=== PATIENT | male | born 1990 | race Caucasian/White ===

== ENCOUNTER 2019-01-01 04:50 | Emergency (ER) | payer OTHER ==
[2019-01-01] MEDS ORDERED: MAG HYDROX/AL HYDROX/SIMETH 30 ML UDC PO STA (05:03)
[2019-01-01] MEDS ORDERED: METOCLOPRAMIDE 10 MG/2 ML VIAL IVP STA (05:03)
[2019-01-01] MEDS ORDERED: FAMOTIDINE 20 MG in SODIUM CHLORIDE 0.9% 50 ML IV STA (05:03)
[2019-01-01] MEDS ORDERED: KETOROLAC 15 MG/ML VIAL IVP STA (05:23)
--- NOTE | 2019-01-01 05:43 | CT Report ---
Reason: flank pain, abdominal pain Procedure Date: 01/01/2019 Accession Number: [id number] / [id number] Procedure: CT - Abdomen/Pelvis WO CPT Code: FULL RESULT: EXAM: CT ABDOMEN AND PELVIS (CT KUB) EXAM DATE: 01/01/2019 05:36 AM. CLINICAL HISTORY: Flank pain, abdominal pain. COMPARISONS: None. TECHNIQUE: Routine axial helical CT imaging was performed through the abdomen and pelvis without IV contrast. Reconstructions: Coronal and sagittal. In accordance with CT protocol optimization, one or more of the following dose reduction techniques were utilized for this exam: automated exposure control, adjustment of mA and/or KV based on patient size, or use of iterative reconstructive technique. FINDINGS: Lung Bases: Unremarkable. Right Kidney/Ureter: No stones, hydronephrosis, or hydroureter. No perinephric fat stranding. Left Kidney/Ureter: No stones, hydronephrosis, or hydroureter. No perinephric fat stranding. Other Solid Organs: Noncontrast images of the solid organs are grossly unremarkable. Gallbladder/Bile Ducts: Unremarkable. Peritoneal Cavity: No free fluid, free air or donny adenopathy. Bowel is grossly unremarkable. Normal appendix. Pelvic Organs: No bladder stones or wall thickening. Noncontrast images of the visualized pelvic organs are unremarkable. Vasculature: Unremarkable. Other: None. IMPRESSION: No urinary tract stones or obstruction. Normal appendix. No evident etiology for patient's pain. RADIA
--- NOTE | 2019-01-01 05:48 | ED Physician Documentation ---
PD HPI ABD PAIN - Stated complaint Stated Complaint: BACK/ABD PAIN - Chief complaint Chief Complaint: Abd Pain - Additional information Additional information: 28-year-old male presents the emergency department with sudden onset of left flank pain which started this morning and has subsided but now the patient has ongoing epigastric discomfort. The patient's epigastric discomfort is only mild at this point. The flank pain was severe. The patient denies lower abdominal pain or testicular pain. The patient denies vomiting or diarrhea or fever. No triggering factors. Symptoms improved on their own. No other associated symptoms Review of Systems Constitutional: denies: Fever Eyes: denies: Discharge Ears: denies: Ear pain Nose: denies: Congestion Throat: denies: Sore throat Respiratory: denies: Cough GI: reports: Abdominal Pain. denies: Vomiting, Diarrhea : denies: Dysuria, Hematuria Musculoskeletal: denies: Neck pain Neurologic: denies: Generalized weakness PD PAST MEDICAL HISTORY - Past Medical History Past Medical History: No Cardiovascular: None Respiratory: None Neuro: None Endocrine/Autoimmune: None GI: None : None HEENT: None Psych: None Musculoskeletal: None Derm: None - Past Surgical History Past Surgical History: No - Allergies Allergies/Adverse Reactions: Allergies Allergy/AdvReac Type Severity Reaction Status Date / Time No Known Drug Allergies Allergy Verified 01/01/19 05:02 - Social History Does the pt smoke?: No Smoking Status: Never smoker Does the pt drink ETOH?: Yes Does the pt have substance abuse?: No - Immunizations Immunizations are current?: Yes - POLST Patient has POLST: No PD ED PE NORMAL - General General: Alert and oriented X 3, No acute distress - HEENT HEENT: Atraumatic, PERRL, EOMI, Ears normal, Moist mucous membranes, Pharynx benign - Neck Neck: Supple, no meningeal sign - Cardiac Cardiac: RRR, Strong equal pulses - Respiratory Respiratory: No respiratory distress, Clear bilaterally - Abdomen Abdomen: Soft, Non distended. No: Non tender (Epigastric discomfort, the patient still is sore in the left flank. No skin changes) - Derm Derm: Normal color - Extremities Extremities: No deformity - Neuro Neuro: Alert and oriented X 3, Normal speech - Psych Psych: Normal affect Results - Vitals Vitals: Vital Signs - 24 hr 01/01/19 01/01/19 04:59 05:38 Temperature 36.5 C Heart Rate 74 84 Respiratory 17 16 Rate Blood Pressure 135/75 H 133/74 H O2 Saturation 96 95 Oxygen O2 Source Room air - EKG (time done) 05:15 Rate: Rate (enter#) Rhythm: Sinus bradycardia Intervals: Normal [place], QRS normal Ischemia: Normal ST segments - Labs Labs: Laboratory Tests 01/01/19 01/01/19 01/01/19 05:10 05:10 05:10 WBC 8.3 RBC 4.84 Hgb 15.6 Hct 46.1 MCV 95.1 H MCH 32.1 H MCHC 33.8 RDW 12.9 Plt Count 205 MPV 10.2 Neut # (Auto) 5.7 Lymph # (Auto) 1.6 [place] # (Auto) 0.6 Eos # (Auto) 0.3 Baso # (Auto) 0.1 Absolute Nucleated RBC 0.00 Nucleated RBC % 0.0 Sodium 141 Potassium 3.7 Chloride 106 Carbon Dioxide 25 Anion Gap 10.0 BUN 16 Creatinine 1.0 Estimated GFR (MDRD) 89 Glucose 113 H Calcium 9.5 Total Bilirubin 0.8 AST 21 ALT 36 Alkaline Phosphatase 81 Troponin I < 0.04 Total Protein 7.6 Albumin 4.8 Globulin 2.8 Albumin/Globulin Ratio 1.7 Lipase 32 - Rads (name of study) CT abd/pelvis Radiology: Final report received, See rad report (No urinary tract stones or obstruction. Normal appendix. No evident Etiology for patient's pain) PD MEDICAL DECISION MAKING - ED course ED course: On reevaluation the patient is resting comfortably and appears to be in no acute distress and denies any acute pain. The patient's workup does not reveal any significant abnormality that would require admission to the hospital or acute surgical consultation. I discussed the findings and plan with the patient who understands and agrees to the plan. I recommended close follow-up with primary care because of his symptoms are not improving he may need referral to GI. I discussed warning signs for a more serious intra-abdominal process advised return to the emergency department immediately for any worsening or any concerns. Departure - Departure Disposition: 01 Home, Self Care Clinical Impression: Epigastric abdominal pain, Flank pain, acute Condition: Good Instructions: Abdominal Pain, ED Abdominal Pain Unkn Cause, ED Flank Pain Uncertain Cause Follow-Up: GLENDY Vazquez [Provider Group] - Within 3 Days Comments: Please return to the emergency department for worsening symptoms or any concerns
[2019-01-01 06:00] LABS: BASOPHILS # (AUTO) 0.1 10^3/uL (0.0-0.1); BASOPHILS % (AUTO) 0.6 %; EOSINOPHILS # (AUTO) 0.3 10^3/uL (0.0-0.7); EOSINOPHILS % (AUTO) 3.6 %; HGB - HEMOGLOBIN 15.6 g/dL (14.0-18.0); LYMPHOCYTES # (AUTO) 1.6 10^3/uL (1.5-3.5); LYMPHOCYTES % (AUTO) 19.8 %; MEAN CORPUSCULAR HEMOGLOBIN 32.1 pg (27.0-31.0); MEAN CORPUSCULAR HGB CONC 33.8 g/dL (32.0-36.0); MEAN CORPUSCULAR VOLUME 95.1 fL (80.0-94.0); MEAN PLATELET VOLUME 10.2 fL (7.4-11.4); MONOCYTES # (AUTO) 0.6 10^3/uL (0.0-1.0); MONOCYTES % (AUTO) 7.5 %; NEUTROPHILS # (AUTO) 5.7 10^3/uL (1.5-6.6); NEUTROPHILS % (AUTO) 68.5 %; PLT - PLATELET COUNT 205 10^3/uL (130-450); RED BLOOD COUNT 4.84 10^6/uL (4.70-6.10); RED CELL DISTRIBUTION WIDTH 12.9 % (12.0-15.0); WHITE BLOOD COUNT 8.3 x10^3/uL (4.8-10.8)
[2019-01-01 06:05] LABS: ALBUMIN 4.8 g/dL (3.2-5.5); ALBUMIN/GLOBULIN RATIO 1.7 (1.0-2.2); BILIRUBIN,TOTAL 0.8 mg/dL (0.2-1.0); CALCIUM 9.5 mg/dL (8.5-10.3); TOTAL PROTEIN 7.6 g/dL (6.7-8.2)
[2019-01-01 06:28] VITALS: BP 112/63
== END 2019-01-01 06:35 | disposition home or self-care (01) ==
LOC: ED 04:50
DX: R10.13 Epigastric pain (principal)
CPT/HCPCS: 36415; 74176; 80053; 83690; 84484; 85025; 93005; 96365; 96375; 99283; A9270; J2765; J7040

== ENCOUNTER 2019-09-29 15:48 | Emergency (ER) | payer OTHER ==
[2019-09-29] MEDS ORDERED: LACTATED RINGERS 1,000 ML IV STA (16:06)
[2019-09-29] MEDS ORDERED: SODIUM CHLORIDE 0.9% 1,000 ML IV ONE (16:06)
[2019-09-29] MEDS ORDERED: ONDANSETRON 4 MG/2 ML VIAL IVP STA (16:06)
[2019-09-29] MEDS ORDERED: LOPERAMIDE 2 MG CAPSULE PO STA (16:06)
--- NOTE | 2019-09-29 16:07 | ED Physician Documentation ---
PD HPI NVD - Stated complaint Stated Complaint: N/V/D - History obtained from History obtained from: Patient (Previously healthy 28-year-old gentleman has been sick since early this morning with vomiting and diarrhea. No abdominal pain except when he is vomiting. Both his and young child were sick with a similar syndrome yesterday. No recent travel.) Review of Systems Constitutional: denies: Fever, Chills Cardiac: denies: Chest pain / pressure, Palpitations Respiratory: denies: Dyspnea, Cough PD PAST MEDICAL HISTORY - Past Medical History Cardiovascular: None Respiratory: None Neuro: None Endocrine/Autoimmune: None GI: None : None HEENT: None Psych: None Musculoskeletal: None Derm: None - Past Surgical History Past Surgical History: No - Present Medications Home Medications: Ambulatory Orders Medication Instructions Recorded Confirmed Loperamide [Imodium] 2 mg PO QID PRN #10 capsule 09/29/19 Ondansetron Odt [Zofran] 4 mg TL Q6H PRN #10 tablet 09/29/19 - Allergies Allergies/Adverse Reactions: Allergies Allergy/AdvReac Type Severity Reaction Status Date / Time No Known Drug Allergies Allergy Verified 01/01/19 05:02 - Social History Does the pt smoke?: No Smoking Status: Never smoker Does the pt drink ETOH?: Yes Does the pt have substance abuse?: No - Immunizations Immunizations are current?: Yes - POLST Patient has POLST: No PD ED PE NORMAL - Vitals Vital signs reviewed: Yes - General General: Alert and oriented X 3, No acute distress - HEENT HEENT: Other (dry MM) - Cardiac Cardiac: RRR, No murmur - Respiratory Respiratory: No respiratory distress, Clear bilaterally - Abdomen Abdomen: Soft, Non tender - Neuro Neuro: Alert and oriented X 3, Normal speech Results - Vitals Vitals: Vital Signs - 24 hr 09/29/19 16:02 Temperature 36.5 C Heart Rate 103 H Respiratory 16 Rate Blood Pressure 126/82 H O2 Saturation 97 Oxygen O2 Source Room air PD MEDICAL DECISION MAKING - ED course ED course: 28-year-old gentleman with typical gastroenteritis and family contacts with same. Nontender belly. He was administered 2 L of IV fluid, Zofran and Imodium with significant improvement in his symptoms and passed an oral challenge. Departure - Departure Disposition: 01 Home, Self Care Clinical Impression: Gastroenteritis Condition: Good Instructions: ED Gastroenteritis Viral Prescriptions: Loperamide [Imodium] 2 mg PO QID PRN #10 capsule PRN Reason: Diarrhea Ondansetron Odt [Zofran] 4 mg TL Q6H PRN #10 tablet PRN Reason: Nausea / Vomiting Comments: As discussed you should be significantly better within 12 to 24 hours. Return in 12 hours if not improving, anytime if worse. Forms: Activity restrictions
[2019-09-29 18:35] VITALS: BP 111/62
== END 2019-09-29 18:47 | disposition home or self-care (01) ==
LOC: ED 15:48
DX: K52.9 Noninfective gastroenteritis and colitis, unspecified (principal)
CPT/HCPCS: 96361; 96374; 99283; A9270; J7120

== ENCOUNTER 2019-12-12 14:39 | Emergency (ER) | payer OTHER ==
--- NOTE | 2019-12-12 15:24 | XRAY Report ---
Reason: R/O Fx Procedure Date: 12/12/2019 Accession Number: [id number] / [id number] Procedure: XR - Ankle 3 View LT CPT Code: Final Report FULL RESULT: EXAM: LEFT ANKLE RADIOGRAPHY EXAM DATE: 12/12/2019 02:54 PM. CLINICAL HISTORY: R/O Fx. COMPARISON: FOOT 3 VIEW LT 12/12/2019 2:59 PM. TECHNIQUE: 3 views. FINDINGS: Bones: No fracture. Os trigonum. Small ossicle adjacent to the anterior process of the calcaneus, possible calcaneus secondarius Joints: Normal. No effusion. No subluxations. The ankle mortise is normally aligned. Soft Tissues: Normal. No soft tissue swelling. IMPRESSION: No fracture or dislocation. RADIA
--- NOTE | 2019-12-12 15:25 | XRAY Report ---
Reason: R/O Fx Procedure Date: 12/12/2019 Accession Number: [id number] / [id number] Procedure: XR - Foot 3 View LT CPT Code: Final Report FULL RESULT: EXAM: LEFT FOOT RADIOGRAPHY EXAM DATE: 12/12/2019 03:09 PM. CLINICAL HISTORY: R/O Fx. COMPARISON: None. TECHNIQUE: 3 views. FINDINGS: Bones: Tiny linear ossific density seen lateral to the cuboid, just distal to the calcaneal cuboid joint, on the oblique radiograph only. Tiny plantar spur. Os trigonum. Well-corticated ossicle adjacent to the anterior calcaneal process, possible calcaneus secondarius. Osteophytosis along the superior margin of the tarsal metatarsal joint. Joints: Normal. No subluxations. Soft Tissues: Normal. No soft tissue swelling. IMPRESSION: Tiny linear ossific density seen adjacent to the cuboid, could be sequela of age-indeterminate avulsion RADIA
--- NOTE | 2019-12-12 17:08 | ED Physician Documentation ---
PD HPI LOWER EXT INJURY - Stated complaint Stated Complaint: LEFT FOOT INJ - Chief complaint Chief Complaint: Ext Problem - History obtained from History obtained from: Patient - History of Present Illness PD HPI LOW EXT INJURY LOCATION: Left Type of injury: Fall, Twist Where injury occurred: Work Timing - onset: Enter time (1400), Today Timing - duration: Hours Timing - details: Abrupt onset, Still present Improved by: Rest, Immobilization Worsened by: Moving, Palpating Associated symptoms: Swelling. No: Weakness, Numbness Contributing factors: No: Anticoagulated, Prior ortho surgery Similar symptoms before: Has not had sx before Recently seen: Not recently seen - Additional information Additional information: 28-year-old male was walking down some steps with a tote in his hand he missed the last step twisted his foot he is not exactly sure how that happened he has a lot of pain to the top of the foot. He has some swelling there as well. He has not tried to bear weight. Review of Systems Constitutional: denies: Fever Eyes: denies: Decreased vision Ears: denies: Ear pain Nose: denies: Congestion Throat: denies: Sore throat Respiratory: denies: Dyspnea, Cough GI: denies: Vomiting : denies: Dysuria PD PAST MEDICAL HISTORY - Past Medical History Cardiovascular: None Respiratory: None Neuro: None Endocrine/Autoimmune: None GI: None : None HEENT: None Psych: None Musculoskeletal: None Derm: None - Past Surgical History Past Surgical History: No - Present Medications Home Medications: Ambulatory Orders Medication Instructions Recorded Confirmed Loperamide [Imodium] 2 mg PO QID PRN #10 capsule 09/29/19 Ondansetron Odt [Zofran] 4 mg TL Q6H PRN #10 tablet 09/29/19 - Allergies Allergies/Adverse Reactions: Allergies Allergy/AdvReac Type Severity Reaction Status Date / Time No Known Drug Allergies Allergy Verified 12/12/19 14:50 - Social History Does the pt smoke?: No Smoking Status: Never smoker Does the pt drink ETOH?: Yes Does the pt have substance abuse?: No - Immunizations Immunizations are current?: Yes - POLST Patient has POLST: No PD ED PE NORMAL - Vitals Vital signs reviewed: Yes (hypertensive ) - General General: Alert and oriented X 3, No acute distress, Well developed/nourished - HEENT HEENT: Atraumatic, PERRL, EOMI - Respiratory Respiratory: No respiratory distress - Derm Derm: Normal color, Warm and dry, No rash - Extremities Extremities: No deformity, Other (There is swelling and point tenderness over the dorsum of the foot over the cuboid. There is no tenderness to the proximal 5th and no tenderness to the malleoli.) - Neuro Neuro: Alert and oriented X 3, radar air traffic controller 2-12 intact, No motor deficit, No sensory deficit, Normal speech Eye Opening: Spontaneous Motor: Obeys Commands Verbal: Oriented GCS Score: 15 - Psych Psych: Normal mood, Normal affect Results - Vitals Vitals: Vital Signs - 24 hr 12/12/19 14:50 Temperature 36.5 C Heart Rate 79 Respiratory 16 Rate Blood Pressure 135/75 H O2 Saturation 99 Oxygen O2 Source Room air - Rads (name of study) foot Radiology: Prelim report reviewed (Impression: Tiny linear ossific density seen adjacent to the cuboid, could be sequela of age indeterminate avulsion), EMP read indepedently, See rad report Ankle Radiology: Prelim report reviewed, EMP read indepedently, See rad report PD MEDICAL DECISION MAKING - ED course Complexity details: reviewed results, re-evaluated patient, considered differential, d/w patient ED course: 28-year-old male with pain is going to the dorsum of foot has a chip fracture to the cuboid and he is specifically tender to that area. He is placed into a walking boot. Departure - Departure Disposition: 01 Home, Self Care Clinical Impression: Foot fracture, left Qualifiers: Encounter type: initial encounter Fracture type: closed Qualified Code(s): S92.902A - Unspecified fracture of left foot, initial encounter for closed fr acture Condition: Stable Instructions: ED Fx Foot Follow-Up: GLENDY Vasquezkvng Vazquez [Provider Group]
[2019-12-12 17:43] VITALS: BP 120/77
== END 2019-12-12 17:46 | disposition home or self-care (01) ==
LOC: ED 14:39
DX: S92.212A Displaced fracture of cuboid bone of left foot, initial encounter for closed fracture (principal); W10.9XXA Fall (on) (from) unspecified stairs and steps, initial encounter; X50.1XXA Overexertion from prolonged static or awkward postures, initial encounter; Y93.01 Activity, walking, marching and hiking; Y99.0 Civilian activity done for income or pay
CPT/HCPCS: 99283; 99284

== ENCOUNTER 2019-12-30 15:02 | Emergency (ER) | payer OTHER ==
[2019-12-30 15:14] VITALS: BP 120/72
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
== END 2019-12-30 16:41 | disposition home or self-care (01) ==
LOC: ED 15:02
DX: M54.9 Dorsalgia, unspecified (principal); R51 Headache; V53.5XXA Driver of pick-up truck or van injured in collision with car, pick-up truck or van in traffic accident, initial encounter; Y92.410 Unspecified street and highway as the place of occurrence of the external cause
CPT/HCPCS: 99281; 99282

== ENCOUNTER 2020-09-08 13:47 | Observation (INO) | payer OTHER ==
[2020-09-08 15:50] LABS: BASOPHILS # (AUTO) 0.1 10^3/uL (0.0-0.1); BASOPHILS % (AUTO) 0.4 %; EOSINOPHILS # (AUTO) 0.2 10^3/uL (0.0-0.7); EOSINOPHILS % (AUTO) 1.8 %; HGB - HEMOGLOBIN 15.6 g/dL (14.0-18.0); LYMPHOCYTES # (AUTO) 1.8 10^3/uL (1.5-3.5); MEAN CORPUSCULAR HEMOGLOBIN 31.9 pg (27.0-31.0); MEAN CORPUSCULAR HGB CONC 33.5 g/dL (32.0-36.0); MEAN CORPUSCULAR VOLUME 95.3 fL (80.0-94.0); MEAN PLATELET VOLUME 11.3 fL (7.4-11.4); MONOCYTES # (AUTO) 0.7 10^3/uL (0.0-1.0); MONOCYTES % (AUTO) 6.2 %; NEUTROPHILS # (AUTO) 8.5 10^3/uL (1.5-6.6); NEUTROPHILS % (AUTO) 75.2 %; PLT - PLATELET COUNT 240 10^3/uL (130-450); RED BLOOD COUNT 4.89 10^6/uL (4.70-6.10); RED CELL DISTRIBUTION WIDTH 12.4 % (12.0-15.0); WHITE BLOOD COUNT 11.3 x10^3/uL (4.8-10.8)
[2020-09-08 16:00] LABS: BILIRUBIN,URINE NEGATIVE (NEGATIVE); GLUCOSE, URINE (UA) NEGATIVE (NEGATIVE); KETONES,URINE (UA) 15 mg/dL (NEGATIVE); LEUKOCYTE ESTERASE, URINE NEGATIVE (NEGATIVE); NITRITE,URINE NEGATIVE (NEGATIVE); OCCULT BLOOD,URINE NEGATIVE (NEGATIVE); PH,URINE 6.5 PH (5.0-7.5); PROTEIN,URINE NEGATIVE (NEGATIVE); UROBILINOGEN,URINE 1 (NORMAL) E.U./dL (NORMAL)
[2020-09-08 16:01] LABS: CLARITY,URINE CLEAR (CLEAR)
[2020-09-08 16:03] LABS: ALBUMIN 5.3 g/dL (3.2-5.5); ALBUMIN/GLOBULIN RATIO 1.8 (1.0-2.2); TOTAL PROTEIN 8.3 g/dL (6.7-8.2)
--- NOTE | 2020-09-08 17:45 | ED Physician Documentation ---
PD HPI ABD PAIN - Stated complaint Stated Complaint: ABD/BACK PX - Chief complaint Chief Complaint: Abd Pain - History obtained from History obtained from: Patient - History of Present Illness Timing - onset: How many weeks ago (1) Timing - duration: Weeks (1) Timing - details: Gradual onset Pain level max: 8 Pain level now: 6 Quality: Aching, Pain Location: RUQ Radiation: Right flank Improved by: Other (Nothing) Worsened by: Eating Associated symptoms: Nausea. No: Fever, Vomiting, Hematemesis, Diarrhea, Constipation, Melena, Hematochezia, Dysuria, Hematuria Similar symptoms before: Has not had sx before Recently seen: Not recently seen - Additional information Additional information: Intermittent right upper quadrant pain for the past week, worse with eating, normally lasts for 15 to 20 minutes at a time, today has been present for over 7 hours. Review of Systems Ten Systems: 10 systems reviewed and negative Constitutional: denies: Fever, Chills Respiratory: denies: Cough : denies: Dysuria Skin: denies: Rash Musculoskeletal: denies: Neck pain, Back pain Neurologic: denies: Headache PD PAST MEDICAL HISTORY - Past Medical History Cardiovascular: None Respiratory: None Neuro: None Endocrine/Autoimmune: None GI: None : None HEENT: None Psych: None Musculoskeletal: None Derm: None - Past Surgical History Past Surgical History: No - Present Medications Home Medications: Ambulatory Orders Medication Instructions Recorded Confirmed Ibuprofen 400 mg PO BID 12/30/19 12/30/19 - Allergies Allergies/Adverse Reactions: Allergies Allergy/AdvReac Type Severity Reaction Status Date / Time No Known Drug Allergies Allergy Verified 09/08/20 14:00 - Social History Does the pt smoke?: No Smoking Status: Never smoker Does the pt drink ETOH?: Yes Does the pt have substance abuse?: No - Immunizations Immunizations are current?: Yes - POLST Patient has POLST: No PD ED PE NORMAL - Vitals Vital signs reviewed: Yes - General General: Alert and oriented X 3, No acute distress, Well developed/nourished - HEENT HEENT: PERRL, Moist mucous membranes - Neck Neck: Supple, no meningeal sign - Cardiac Cardiac: RRR, Strong equal pulses - Respiratory Respiratory: No respiratory distress, Clear bilaterally - Abdomen Abdomen: Normal bowel sounds, Soft, Non distended, Other (Tender to palpation right upper quadrant. Positive Aguilar sign) - Derm Derm: Warm and dry - Extremities Extremities: No edema - Neuro Neuro: Alert and oriented X 3 - Psych Psych: Normal mood, Normal affect Results - Vitals Vitals: Vital Signs - 24 hr 09/08/20 09/08/20 09/08/20 13:55 14:37 16:00 Temperature 36.9 C 36.9 C 36.8 C Heart Rate 76 76 78 Respiratory 16 16 16 Rate Blood Pressure 128/74 128/74 126/72 O2 Saturation 99 99 100 09/08/20 19:26 Temperature 37.2 C Heart Rate 84 Respiratory 16 Rate Blood Pressure 124/90 H O2 Saturation 99 Oxygen O2 Source Room air - Labs Labs: Laboratory Tests 09/08/20 09/08/20 09/08/20 15:44 15:44 15:50 WBC 11.3 H RBC 4.89 Hgb 15.6 Hct 46.6 MCV 95.3 H MCH 31.9 H MCHC 33.5 RDW 12.4 Plt Count 240 MPV 11.3 Neut # (Auto) 8.5 H Lymph # (Auto) 1.8 [place] # (Auto) 0.7 Eos # (Auto) 0.2 Baso # (Auto) 0.1 Absolute Nucleated RBC 0.00 Nucleated RBC % 0.0 Sodium 138 Potassium 4.2 Chloride 100 L Carbon Dioxide 27 Anion Gap 11.0 BUN 14 Creatinine 1.0 Estimated GFR (MDRD) 88 L Glucose 96 Calcium 10.0 Total Bilirubin 1.0 AST 20 ALT 39 Alkaline Phosphatase 65 Total Protein 8.3 H Albumin 5.3 Globulin 3.0 Albumin/Globulin Ratio 1.8 Lipase 22 Urine Color YELLOW Urine Clarity CLEAR Urine pH 6.5 Ur Specific [place] 1.025 Urine Protein NEGATIVE Urine Glucose (UA) NEGATIVE Urine Ketones 15 H Urine Occult Blood NEGATIVE Urine Nitrite NEGATIVE Urine Bilirubin NEGATIVE Urine Urobilinogen 1 (NORMAL) Ur Leukocyte Esterase NEGATIVE Ur Microscopic Review NOT INDICATED Urine Culture Comments NOT INDICATED - Rads (name of study) RUQ Ultrasound Radiology: Prelim report reviewed, EMP read contemporaneously, See rad report PD MEDICAL DECISION MAKING - ED course Complexity details: reviewed results, re-evaluated patient, considered differential, d/w patient, d/w email production consultant ED course: 29-year-old male presents to the emergency department with right upper quadrant abdominal pain constant for the past several hours. Not relieved with Dilaudid in the emergency department. Right upper quadrant ultrasound shows nonmobile ga llstones at the neck of the gallbladder with gallbladder distention and gallbladder wall thickening. Does have leukocytosis as well. Likely that this represents developing acute cholecystitis. Discussed the case with Dr. Bernal, general surgery, will place on IV antibiotics overnight and possible operating room tomorrow. This document was made in part using voice recognition software. While efforts are made to proofread this document, sound alike and grammatical errors may occur. Nonmobile gallstones are seen at the neck of the gallbladder with mild gallbladder distention. There is possible gallbladder wall thickening. No pericholecystic fluid is seen. Recommend clinical correlation to exclude acute cholecystitis. Departure - Departure Disposition: ED Place in Observation Clinical Impression: Cholecystitis Condition: Stable Discharge Date/Time: 09/08/20 21:05
--- NOTE | 2020-09-08 18:22 | Ultrasound Report ---
PROCEDURE: Abdomen Limited INDICATIONS: RUQ abd pain TECHNIQUE: Real-time scanning was performed of the abdominal and retroperitoneal organs, with image documentatio n. COMPARISON: None. FINDINGS: Liver: Liver is normal in size and homogeneous in echotexture. Gallbladder: Multiple gallstones are seen at the gallbladder neck measuring up to 1.1 cm in maximum d imension. The gallbladder is distended, measuring up to 11.5 x 4.8 x 5.4 cm. There is possible gallbl adder wall thickening that measures up to 7 mm on some images. There is no pericholecystic fluid. Biliary ducts: Intrahepatic bile ducts are non-dilated. Extrahepatic bile duct caliber measures 4 m m. Normal is 6-7 mm or less in diameter, or 10 mm or less post-cholecystectomy. Pancreas: Not well visualized due to overlying bowel gas. Kidneys: Right kidney is normal in size and echotexture. Right kidney measures 10.4 cm long. No hyd ronephrosis or nephrolithiasis. No solid masses. Miscellaneous: No free right upper quadrant fluid. IMPRESSION: Nonmobile gallstones are seen at the neck of the gallbladder with mild gallbladder distention. There is possible gallbladder wall thickening. No pericholecystic fluid is seen. Recommend clinical correla tion to exclude acute cholecystitis. Preliminary report was given to Dr. Cuevas by the control panel builder on 09/08/2020 at 5:55 PM. Reviewed by: Juan Zimmer MD on 09/08/2020 6:20 PM PST Approved by: Juan Zimmer MD on 09/08/2020 6:20 PM PST Station ID: [id number]
[2020-09-08] MEDS ORDERED: SODIUM CHLORIDE 0.9% 1,000 ML IV STA ×2 (19:10→20:03)
[2020-09-08] MEDS ORDERED: HYDROmorphone 1 MG/ML CARPUJECT IVP STA (19:10)
[2020-09-08] MEDS ORDERED: PIPERACILLIN/TAZOBACTAM 3.375 GM in SODIUM CHLORIDE 0.9% MINIBAG 100 ML IV STA (19:49)
[2020-09-08] MEDS ORDERED: ONDANSETRON 4 MG/2 ML VIAL IVP PRN (20:27)
[2020-09-08] MEDS ORDERED: HYDROmorphone 0.5 MG/0.5 ML SYRINGE IVP PRN (20:27)
[2020-09-08] MEDS ORDERED: SODIUM CHLORIDE FLUSH 0.9% 10 ML SYRINGE IVP PRN (20:27)
[2020-09-08] MEDS ORDERED: PROCHLORPERAZINE 10 MG/2 ML VIAL IVP PRN (20:27)
[2020-09-08] MEDS: ONDANSETRON ODT 4 MG TABLET TL PRN (21:52)
[2020-09-08] MEDS: FAMOTIDINE 20 MG TABLET PO SCH (21:52)
[2020-09-08 22:09] LABS: C. PNEUMONIAE- RESP PCR PANEL NOT DETECTED
[2020-09-08] MEDS: LACTATED RINGERS 1,000 ML IV SCH (22:17)
[2020-09-09] MEDS: SODIUM CHLORIDE FLUSH 0.9% 10 ML SYRINGE IVP SCH ×3 (06:41→16:49)
[2020-09-09] MEDS: FAMOTIDINE 20 MG TABLET PO SCH (07:18)
[2020-09-09] MEDS: LACTATED RINGERS 1,000 ML IV SCH ×2 (07:41→13:37)
[2020-09-09] MEDS ORDERED: ceFAZolin 2 GM in SODIUM CHLORIDE 0.9% 100ML 100 ML IV ONE (08:00)
--- NOTE | 2020-09-09 09:41 | HISTORY & PHYSICAL EXAMINATION ---
Chief Complaint - Chief Complaint Chief Complaint: epigastric, right upper abdominal pain Abdominal Pain HPI - Admitted From Admitted from: ED - History Obtained From History obtained from: Patient Exam limitations: No limitations - History of Present Illness Severity at the worst: Severe Pain Quality: Aching Context-Pain started w/: Rest Timing: Gradual onset Duration: Days: (1 week) Improved with: Rest, Other (pain meds) HPI Comment/Other: He has had epigastric to ruq pain going to right upper back for about a week. No significant change in bowel habits. Pain became much worse yesterday am and he came to the ED. Ultrasound impacted gallstones. His mother had her gallbladder out many years ago. PMH/PSH - Past Medical History Cardiovascular: positive: None Respiratory: positive: None Neuro: positive: None Endocrine/Autoimmune: positive: None GI: positive: None : positive: None HEENT: positive: None Psych: positive: None Musculoskeletal: positive: None Derm: positive: None MRSA Hx?: No Social & Family Hx - Social History Does the pt smoke?: No Smoking Status: Never smoker Does the pt drink ETOH?: Yes Does the pt have substance abuse?: No - POLST Patient has POLST: No Meds/Allgy - Home Medications Home Medications: Ambulatory Orders Medication Instructions Recorded Confirmed Ibuprofen 400 mg PO BID 12/30/19 12/30/19 - Allergies Allergies/Adverse Reactions: Allergies Allergy/AdvReac Type Severity Reaction Status Date / Time No Known Drug Allergies Allergy Verified 09/08/20 14:00 Review of Systems - Constitutional Constitutional: reports: Fatigue (10 pt ros as above otherwise unremarkable) Exam - Vital Signs Reviewed Vital Signs: Yes Vital Signs: Vital Signs x48h Temp Pulse Pulse Resp BP Pulse Ox 09/09/20 07:40 36.5 C 52 L 16 98 09/09/20 07:30 37.1 C 54 L 16 107/52 L 100 09/09/20 05:00 36.8 C 52 L 14 102/66 97 - Physical Exam General Appearance: positive: No acute distress, Alert Eyes Bilateral: positive: Normal inspection, PERRL, EOMI, No scleral icterus ENT: positive: No signs of dehydration Neck: positive: No JVD Respiratory: positive: No respiratory distress Cardiovascular: positive: Regular rate & rhythm Abdomen: positive: No distention, Tenderness (right upper quadrant tenderness) Neurologic/Psychiatric: positive: Oriented x3 Results - Lab Results Fish Bones: 09/08/20 15:44 09/08/20 15:44 Other Lab Results: Lab Results x24hrs 09/08/20 09/08/20 09/08/20 Range/Units 21:02 15:50 15:44 WBC (4.8-10.8) x10^3/uL RBC (4.70-6.10) 10^6/uL Hgb (14.0-18.0) g/dL Hct (42.0-52.0) % MCV (80.0-94.0) fL MCH (27.0-31.0) pg MCHC (32.0-36.0) g/dL RDW (12.0-15.0) % Plt Count (130-450) 10^3/uL MPV (7.4-11.4) fL Neut # (Auto) (1.5-6.6) 10^3/uL Lymph # (Auto) (1.5-3.5) 10^3/uL Labette # (Auto) (0.0-1.0) 10^3/uL Eos # (Auto) (0.0-0.7) 10^3/uL Baso # (Auto) (0.0-0.1) 10^3/uL Absolute Nucleated RBC x10^3/uL Nucleated RBC % /100WBC Sodium 138 (135-145) mmol/L Potassium 4.2 (3.5-5.0) mmol/L Chloride 100 L (101-111) mmol/L Carbon Dioxide 27 (21-32) mmol/L Anion Gap 11.0 (6-13) BUN 14 (6-20) mg/dL Creatinine 1.0 (0.6-1.2) mg/dL Estimated GFR (MDRD) 88 L (>89) Glucose 96 (70-100) mg/dL Calcium 10.0 (8.5-10.3) mg/dL Total Bilirubin 1.0 (0.2-1.0) mg/dL AST 20 (10-42) IU/L ALT 39 (10-60) IU/L Alkaline Phosphatase 65 (42-121) IU/L Total Protein 8.3 H (6.7-8.2) g/dL Albumin 5.3 (3.2-5.5) g/dL Globulin 3.0 (2.1-4.2) g/dL Albumin/Globulin Ratio 1.8 (1.0-2.2) Lipase 22 (22-51) U/L Urine Color YELLOW Urine Clarity CLEAR (CLEAR) Urine pH 6.5 (5.0-7.5) PH Ur Specific Peyton 1.025 (1.002-1.030) Urine Protein NEGATIVE (NEGATIVE) mg/dL Urine Glucose (UA) NEGATIVE (NEGATIVE) mg/dL Urine Ketones 15 H (NEGATIVE) mg/dL Urine Occult Blood NEGATIVE (NEGATIVE) Urine Nitrite NEGATIVE (NEGATIVE) Urine Bilirubin NEGATIVE (NEGATIVE) Urine Urobilinogen 1 (NORMAL) (NORMAL) E.U./dL Ur Leukocyte Esterase NEGATIVE (NEGATIVE) Ur Microscopic Review NOT INDICATED Urine Culture Comments NOT INDICATED Nasal Adenovirus (PCR) NOT DETECTED Nasal B. parapertussis DNA (PCR) NOT DETECTED Nasal Coronavir 229E PCR NOT DETECTED Nasal Coronavir HKU1 PCR NOT DETECTED Nasal Coronavir NL63 PCR NOT DETECTED Nasal Coronavir OC43 PCR NOT DETECTED Nasal Enterovir/Rhinovir PCR NOT DETECTED Nasal Influenza B PCR NOT DETECTED Nasal Influenza A PCR NOT DETECTED Nasal Parainfluen 1 PCR NOT DETECTED Nasal Parainfluen 2 PCR NOT DETECTED Nasal Parainfluen 3 PCR NOT DETECTED Nasal Parainfluen 4 PCR NOT DETECTED Nasal RSV (PCR) NOT DETECTED Nasal B.pertussis DNA PCR NOT DETECTED Nasal C.pneumoniae (PCR) NOT DETECTED Bassem Human Metapneumo PCR NOT DETECTED Nasal M.pneumoniae (PCR) NOT DETECTED Nasal SARS-CoV-2 (PCR) NOT DETECTED 09/08/20 Range/Units 15:44 WBC 11.3 H (4.8-10.8) x10^3/uL RBC 4.89 (4.70-6.10) 10^6/uL Hgb 15.6 (14.0-18.0) g/dL Hct 46.6 (42.0-52.0) % MCV 95.3 H (80.0-94.0) fL MCH 31.9 H (27.0-31.0) pg MCHC 33.5 (32.0-36.0) g/dL RDW 12.4 (12.0-15.0) % Plt Count 240 (130-450) 10^3/uL MPV 11.3 (7.4-11.4) fL Neut # (Auto) 8.5 H (1.5-6.6) 10^3/uL Lymph # (Auto) 1.8 (1.5-3.5) 10^3/uL Labette # (Auto) 0.7 (0.0-1.0) 10^3/uL Eos # (Auto) 0.2 (0.0-0.7) 10^3/uL Baso # (Auto) 0.1 (0.0-0.1) 10^3/uL Absolute Nucleated RBC 0.00 x10^3/uL Nucleated RBC % 0.0 /100WBC Sodium (135-145) mmol/L Potassium (3.5-5.0) mmol/L Chloride (101-111) mmol/L Carbon Dioxide (21-32) mmol/L Anion Gap (6-13) BUN (6-20) mg/dL Creatinine (0.6-1.2) mg/dL Estimated GFR (MDRD) (>89) Glucose (70-100) mg/dL Calcium (8.5-10.3) mg/dL Total Bilirubin (0.2-1.0) mg/dL AST (10-42) IU/L ALT (10-60) IU/L Alkaline Phosphatase (42-121) IU/L Total Protein (6.7-8.2) g/dL Albumin (3.2-5.5) g/dL Globulin (2.1-4.2) g/dL Albumin/Globulin Ratio (1.0-2.2) Lipase (22-51) U/L Urine Color Urine Clarity (CLEAR) Urine pH (5.0-7.5) PH Ur Specific Peyton (1.002-1.030) Urine Protein (NEGATIVE) mg/dL Urine Glucose (UA) (NEGATIVE) mg/dL Urine Ketones (NEGATIVE) mg/dL Urine Occult Blood (NEGATIVE) Urine Nitrite (NEGATIVE) Urine Bilirubin (NEGATIVE) Urine Urobilinogen (NORMAL) E.U./dL Ur Leukocyte Esterase (NEGATIVE) Ur Microscopic Review Urine Culture Comments Nasal Adenovirus (PCR) Nasal B. parapertussis DNA (PCR) Nasal Coronavir 229E PCR Nasal Coronavir HKU1 PCR Nasal Coronavir NL63 PCR Nasal Coronavir OC43 PCR Nasal Enterovir/Rhinovir PCR Nasal Influenza B PCR Nasal Influenza A PCR Nasal Parainfluen 1 PCR Nasal Parainfluen 2 PCR Nasal Parainfluen 3 PCR Nasal Parainfluen 4 PCR Nasal RSV (PCR) Nasal B.pertussis DNA PCR Nasal C.pneumoniae (PCR) Bassem Human Metapneumo PCR Nasal M.pneumoniae (PCR) Nasal SARS-CoV-2 (PCR) - Diagnostic Imaging Results Diagnostic Imaging Results: positive: Final report reviewed, Read independently (impacted gallstones) Impression/Plan - Problem List Problem List: Cholecystitis plan lap ruby. parq held and consent obtained
[2020-09-09] MEDS ORDERED: fentaNYL 100 MCG/2 ML VIAL IVP PRN (09:49)
[2020-09-09] MEDS ORDERED: ePHEDrine 50 MG/ML VIAL IVP PRN (09:49)
[2020-09-09] MEDS ORDERED: MORPHINE 2 MG/ML CARPUJECT IVP PRN (09:49)
[2020-09-09] MEDS ORDERED: HYDROmorphone 0.5 MG/0.5 ML SYRINGE IVP PRN (09:49)
[2020-09-09] MEDS ORDERED: ATROPINE ABBOJECT 1 MG/10 ML SYRINGE IVP PRN (09:49)
[2020-09-09] MEDS ORDERED: METOCLOPRAMIDE 10 MG/2 ML VIAL IVP PRN (09:49)
[2020-09-09] MEDS ORDERED: ONDANSETRON 4 MG/2 ML VIAL IVP PRN ×2 (09:49→12:36)
[2020-09-09] MEDS ORDERED: NALOXONE 0.4 MG/ML VIAL IVP PRN (09:49)
--- NOTE | 2020-09-09 09:49 | ANESTHESIA ---
Pre-Anesthesia VS, & Labs - Diagnosis cholelithiasis - Procedure laparoscopic cholecystectomy Vital Signs: Temp Pulse Resp BP Pulse Ox 36.5 C 52 L 16 107/52 L 98 09/09/20 07:40 09/09/20 07:40 09/09/20 07:40 09/09/20 07:30 09/09/20 07:40 Height: 5 ft Weight (kg): 85.5 kg Body Mass Index: 36.8 BMI Classification: Obese - NPO >8 hours - Lab Results Current Lab Results: Laboratory Tests 09/08/20 15:44: Sodium 138, Potassium 4.2, Chloride 100 L, Carbon Dioxide 27, Anion Gap 11.0, BUN 14, Creatinine 1.0, Estimated GFR (MDRD) 88 L, Glucose 96, Calcium 10.0, Total Bilirubin 1.0, AST 20, ALT 39, Alkaline Phosphatase 65, Total Protein 8.3 H, Albumin 5.3, Globulin 3.0, Albumin/Globulin Ratio 1.8, Lipase 22 09/08/20 15:44: WBC 11.3 H, RBC 4.89, Hgb 15.6, Hct 46.6, MCV 95.3 H, MCH 31.9 H , MCHC 33.5, RDW 12.4, Plt Count 240, MPV 11.3, Neut # (Auto) 8.5 H, Lymph # (Auto) 1.8, [place] # (Auto) 0.7, Eos # (Auto) 0.2, Baso # (Auto) 0.1, Absolute Nucleated RBC 0.00, Nucleated RBC % 0.0 Lab results reviewed: Yes Fish Bones: 09/08/20 15:44 09/08/20 15:44 Home Medications and Allergies Active Medications Famotidine (Pepcid) 20 mg PO BID [facility] Last Admin: 09/09/20 07:18 Dose: Not Given Documented by: Hydromorphone HCl (Dilaudid Inj Syringe) 0.5 mg IVP Q2H PRN PRN Reason: Pain 8 to 10 Last Admin: 09/08/20 22:19 Dose: 0.5 mg Documented by: Lactated Ringer's (Lr) 1,000 mls @ 100 mls/hr IV .Q10H [facility] Last Admin: 09/09/20 07:41 Dose: 100 mls/hr Documented by: Ondansetron HCl (Zofran Odt) 4 mg TL Q6HR PRN PRN Reason: Nausea / Vomiting Last Admin: 09/08/20 21:52 Dose: 4 mg Documented by: Ondansetron HCl (Zofran Inj) 4 mg IVP Q6HR PRN PRN Reason: Nausea / Vomiting Last Admin: 09/09/20 08:40 Dose: 4 mg Documented by: Prochlorperazine Edisylate (Compazine Inj) 10 mg IVP Q6HR PRN PRN Reason: Nausea / Vomiting Sodium Chloride (Normal Saline Flush 0.9%) 10 ml IVP PRN PRN PRN Reason: NEEDED PER PROVIDER ORDERS Sodium Chloride (Normal Saline Flush 0.9%) 10 ml IVP 0100,0900,1700 K[facility] Last Admin: 09/09/20 08:35 Dose: Not Given Documented by: Ibuprofen 400 mg PO BID 12/30/19 Allergies/Adverse Reactions: Allergies Allergy/AdvReac Type Severity Reaction Status Date / Time No Known Drug Allergies Allergy Verified 09/08/20 14:00 Anes History & Medical History - Anesthetic History Anesthesia Complications: reports: No previous complications Family history of Anesthesia Complications: Denies Family history of Malignant Hyperthermia: Denies - Medical History Cardiovascular: reports: None Pulmonary: reports: None Gastrointestinal: reports: None Urinary: reports: None Neuro: reports: None Musculoskeletal: reports: None Endocrine/Autoimmune: reports: None Blood Disorders: reports: None Skin: reports: None Smoking Status: Never smoker Exam General: Alert, Oriented x3, Cooperative Dental: WNL Mouth Openin Fingerbreadth Neck Mobility: Normal Mallampati classification: II Thyromental Distance: greater than 6 cm Respiratory: Lungs clear, Normal breath sounds, No respiratory distress Cardiovascular: Regular rate Neurological: Normal speech Mental/Cognitive Status: Alert/Oriented X3, Normal for patient Cognitive Status: Within normal limits Plan Anesthesia Type: General Consent for Procedure(s) Verified and Reviewed: Yes Code Status: Attempt Resuscitation ASA classification: 1-Healthy patient Is this case an emergency?: No
[2020-09-09] MEDS ORDERED: LACTATED RINGERS 1,000 ML IV SCH (10:00)
[2020-09-09] MEDS ORDERED: BUPIVACAINE 0.25% PF 30 ML VIAL ONE (10:27)
[2020-09-09] MEDS ORDERED: BUPIVACAINE 0.25% PF 30 ML VIAL SUBQ ONE ×2 (10:43→12:07)
[2020-09-09] MEDS ORDERED: LACTATED RINGERS 1,000 ML IV ONE (12:20)
--- NOTE | 2020-09-09 12:42 | OPERATIVE REPORT ---
Operative Report - General Admit Date: 09/08/20 Procedure Date: 09/09/20 Planned Procedure: lap ruby Pre-Op Diagnosis: cholecystitis Procedure Performed: lap ruby Post Op Diagnosis: acute on chronic cholecystitis - Procedure Note Primary Surgeon: papi maldonado Anesthesia Technique: General ET tube, Local Pathology: gallbladder Estimated Blood Loss (mL): 25 Drain/Tube Type: Other (none) Complications: none
--- NOTE | 2020-09-09 13:24 | ANESTHESIA POST OP EVALUATION ---
Anesthesia Post Eval - Post Anesthesia Eval Vitals: Last Vital Signs Temp 36.2 C L 09/09/20 13:05 Pulse 73 09/09/20 13:14 Resp 12 09/09/20 13:14 BP 131/83 H 09/09/20 13:14 Pulse Ox 96 09/09/20 13:14 CV Function Including HR & BP: positive: Stable Pain Control: positive: Satisfactory Nausea & Vomiting: positive: Negative Mental Status: positive: Baseline Respiratory Status: Airway Patent Hydration Status: Satisfactory Anesthesia Complications: positive: None
[2020-09-09] MEDS: ONDANSETRON ODT 4 MG TABLET TL PRN (13:35)
[2020-09-09] MEDS: HYDROcod/ACETAM 5/325 MG TABLET PO PRN ×2 (13:35→17:22)
--- NOTE | 2020-09-09 15:40 | OPERATIVE REPORT ---
DATE OF SERVICE: 09/09/2020 Physician: Willie Bernal MD PREOPERATIVE DIAGNOSIS: Cholecystitis. POSTOPERATIVE DIAGNOSIS: [id number] cholecystitis. PROCEDURE PERFORMED: Laparoscopic cholecystectomy. SURGEON: Willie Bernal MD CIVIL ENGINEER IN TRAINING: None. ANESTHESIA 1. General endotracheal anesthesia. 2. Local anesthesia with Marcaine. COMPLICATIONS: None. ESTIMATED BLOOD LOSS: 25 mL. DRAINS: None. FINDINGS: [id number] cholecystitis with markedly distended, chronically inflamed, obstructed gallbladder. INDICATIONS FOR PROCEDURE: The patient is a 29-year-old who has been having epigastric right upper quadrant pain. It became acutely worse and he was seen, evaluated and admitted. Ultrasound revealed a very distended gallbladder with obstructing stones. Surgery was recommended. Risks discussed, alternatives discussed. All questions answered and consent obtained. DESCRIPTION OF PROCEDURE: The patient was properly identified and brought to the operating room and placed in supine position. He voided prior to surgery. General endotracheal anesthesia was induced. Sequential compression devices were placed. He was prepped and draped in a sterile fashion. He previously received antibiotics. Local anesthetic was given to incision areas. An infraumbilical incision was made. Dissection proceeded down to the fascia. The fascia was incised, lifted upwards and abdomen entered with the Veress needle. An 11 mm trocar with a 30-degree scope was placed. There was no evidence of injury from Veress needle or trocar placement. Under direct vision, two 5 mm trocars were placed in the right upper quadrant and an 11 mm trocar was placed in the epigastrium. The gallbladder was markedly distended. Omentum was adherent. The omentum was carefully peeled off from the gallbladder. The gallbladder was aspirated. Fluid was nearly clear. The omentum was further mobilized off from the gallbladder. The gallbladder was quite enlarged as ultrasound indicated nearly 10 cm. Lateral attachments were partially taken down from the gallbladder, further mobilizing the gallbladder more anterior and away from the duodenum. Stones in the infundibulum of the gallbladder were milked upwards. A large bare cystic plate area was developed. The cystic artery was clipped at the gallbladder and x2, slightly proximal and swept up towards the retroperitoneum. The cystic duct was further mobilized down to where it narrowed and was normal. The cystic duct was clipped at the gallbladder and x3, slightly proximal and sharply divided. The gallbladder was mobilized off from the bed of the liver. There was a very small vessel that came right lateral of the gallbladder towards the fundus. This was clipped and divided with cautery. The gallbladder was placed in an EndoCatch bag and brought out through an enlarged epigastric trocar site. The abdomen was thoroughly irrigated. Hemostasis was assured. Clips were secure. Trocars were removed under direct vision and CO2 evacuated. Fascia at the infraumbilical site was closed with a running 0 Vicryl. Fascia and epigastrium was closed with a running 0 Vicryl. Subcutaneous tissue was irrigated and skin closed with buried interrupted 4-0 Monocryl. Dressings were applied. He tolerated the procedure well. TD: 09/09/2020 15:02 SAVANNAH
[2020-09-09 17:32] VITALS: BP 125/74
[2020-09-09] MEDS ORDERED: ROCURONIUM 50 MG/5 ML VIAL IVP ONE (18:32)
[2020-09-09] MEDS ORDERED: MIDAZOLAM 2 MG/2 ML VIAL IVP ONE (18:32)
[2020-09-09] MEDS ORDERED: LIDOCAINE-MPF 2% 5 ML VIAL IM ONE (18:32)
[2020-09-09] MEDS ORDERED: fentaNYL 100 MCG/2 ML VIAL IVP ONE (18:32)
[2020-09-09] MEDS ORDERED: NEOSTIGMINE 1 MG/1 ML 10 ML MDV IVP ONE (18:32)
[2020-09-09] MEDS ORDERED: DEXAMETHASONE 4 MG/ML VIAL IVP ONE (18:32)
[2020-09-09] MEDS ORDERED: GLYCOPYRROLATE 1 MG/5 ML VIAL IVP ONE (18:32)
[2020-09-09] MEDS ORDERED: ONDANSETRON 4 MG/2 ML VIAL IVP ONE (18:32)
[2020-09-09] MEDS ORDERED: PROPOFOL 200 MG/20 ML VIAL IVP ONE (18:32)
== END 2020-09-09 18:33 | disposition home or self-care (01) ==
LOC: ED 13:47 → MS2 20:27
PROVIDERS: ADMIT Surgery; ATTEND Surgery
PROC: 0FT44ZZ Resection of Gallbladder, Percutaneous Endoscopic Approach (ICD-10-PCS; principal; 2020-09-08)
DX: K80.12 Calculus of gallbladder with acute and chronic cholecystitis without obstruction (principal); Z20.828 Contact with and (suspected) exposure to other viral communicable diseases
CPT/HCPCS: 0202U; 36415; 47562; 76705; 80053; 81003; 83690; 85025; 88304; 96365; 96375; 99285; A9270; G0378; J1170; J7120; Q0162; 81001; 87086

== ENCOUNTER 2022-07-01 15:31 | Emergency (ER) | payer OTHER ==
[2022-07-01] MEDS ORDERED: IBUPROFEN 800 MG TABLET PO STA (15:43)
--- NOTE | 2022-07-01 15:44 | ED Physician Documentation ---
History of Present Illness - Stated complaint Stated Complaint: ANKLE INJ - Chief complaint Chief Complaint: Ext Problem - History obtained from History obtained from: Patient, EMS - History of Present Illness Timing: Today Pain level max: 8 Pain level now: 5 - Additonal information Additional information: Patient was playing ultimate [employer] today when he came down on another individual's foot and rolled the right ankle. Brought in by EMS for ankle pain. Worse with walking, better with rest. Review of Systems Constitutional: denies: Fever, Chills GI: denies: Vomiting, Diarrhea PD PAST MEDICAL HISTORY - Past Medical History Cardiovascular: None Respiratory: None Neuro: None Endocrine/Autoimmune: None GI: None : None HEENT: None Psych: None Musculoskeletal: None Derm: None - Past Surgical History Past Surgical History: No - Present Medications Home Medications: Ambulatory Orders Medication Instructions Recorded Confirmed No Known Home Medications 07/01/22 07/01/22 - Allergies Allergies/Adverse Reactions: Allergies Allergy/AdvReac Type Severity Reaction Status Date / Time No Known Drug Allergies Allergy Verified 07/01/22 15:40 - Social History Does the pt smoke?: No Smoking Status: Never smoker Does the pt drink ETOH?: Yes Does the pt have substance abuse?: No - Immunizations Immunizations are current?: Yes - POLST Patient has POLST: No PD ED PE NORMAL - Vitals Vital signs reviewed: Yes - General General: Alert and oriented X 3, No acute distress - HEENT HEENT: Atraumatic, Moist mucous membranes - Neck Neck: No bony TTP - Derm Derm: Warm and dry - Extremities Extremities: Other (R ankle - Tenderness palpation over the lateral malleolus of the right ankle. No tenderness over the base of the fifth metatarsal or the foot. Neurovascular intact. Otherwise normal examination of the right foot, ankle and lower extremity.) - Neuro Neuro: Alert and oriented X 3 Results - Vitals Vitals: Vital Signs - 24 hr 07/01/22 07/01/22 15:36 17:27 Temperature 36.8 C Heart Rate 79 80 Respiratory 16 16 Rate Blood Pressure 119/81 H 115/70 O2 Saturation 98 97 Oxygen O2 Source Room air - Rads (name of study) R ankle xray Radiology: Final report received, EMP read contemporaneously, See rad report PD MEDICAL DECISION MAKING - ED course Complexity details: reviewed results, re-evaluated patient, considered differential, d/w patient, d/w talent development consultant ED course: 31-year-old male with a potential lateral talus avulsion fracture on x-ray. He declines any pain medication for home. Discussed the case with Dr. Haskins, orthopedics who reviewed the images. Recommends a gel splint, nonweightbearing and follow-up in the office. Patient counseled regarding signs and symptoms for which I believe and urgent re-evaluation would be necessary. Patient with good understanding of and agreement to plan and is comfortable going home at this time This document was made in part using voice recognition software. While efforts are made to proofread this document, sound alike and grammatical errors may occur. Departure - Departure Disposition: 01 Home, Self Care Clinical Impression: Fracture, talus closed Qualifiers: Encounter type: initial encounter Talus location: unspecified portion of talus Fracture alignment: nondisplaced Laterality: right Qualified Code(s): S92.101A - Unspecified fracture of right talus, initial encounter for closed fracture Right ankle sprain Qualifiers: Encounter type: initial encounter Involved ligament of ankle: unspecified ligament Qualified Code(s): S93.401A - Sprain of unspecified ligament of right ankle, initial encounter Condition: Good Instructions: ED Fx Ankle General, ED Sprain Ankle W X Ray Follow-Up: ITA GUZMAN MD [Primary Care Provider] - [facility] [Provider Group] - Within 1 week Comments: Please follow-up with orthopedics for further care. Please return if you worsen. Your x-ray today shows a small avulsion fracture on the lateral aspect of the talus. This should heal well. I spoke with Dr. Haskins from orthopedics today who recommends to be nonweightbearing until cleared by orthopedics. Please call for an appointment Forms: Activity restrictions Discharge Date/Time: 07/01/22 17:35
--- NOTE | 2022-07-01 16:20 | XRAY Report ---
PROCEDURE: Ankle 3 View RT INDICATIONS: fall, ankle pain. lat malleolus TECHNIQUE: 3 views of the ankle were acquired. COMPARISON: None FINDINGS: Bones: There are small ossific fragments off the lateral margin of the talus inferiorly seen only on the frontal view. There is moderate overlying soft tissue edema. Otherwise, no acute fractures ident ified elsewhere. Normal alignment. Minimal cortical regularity involving the plantar surface of the p osterior calcaneus seen only on the lateral view likely representing early enthesophyte formation. No cortical disruption. Ankle mortise is normally aligned. No suspicious bony lesions. Soft tissues: No tibiotalar joint effusion. Achilles tendon appears normal. IMPRESSION: Suspected avulsion fracture involving the lateral aspect of the talus. Subtle cortical irregularity over the plantar aspect of the posterior calcaneus suspected to represen t early enthesophyte formation. Recommend correlating with examination to exclude point tenderness in this region. Moderate lateral malleolus soft tissue swelling. Reviewed by: Gurpreet Flowers MD on 07/01/2022 4:18 PM PDT Approved by: Gurpreet Flowers MD on 07/01/2022 4:18 PM PDT Station ID: [id number]
[2022-07-01 17:28] VITALS: BP 115/70
== END 2022-07-01 17:35 | disposition home or self-care (01) ==
LOC: EDUNIT# → ED 15:31
DX: S92.101A Unspecified fracture of right talus, initial encounter for closed fracture (principal); S93.401A Sprain of unspecified ligament of right ankle, initial encounter; X50.1XXA Overexertion from prolonged static or awkward postures, initial encounter; Y93.59 Activity, other involving other sports and athletics played individually
CPT/HCPCS: 73610; 99283; 99284; A9270